=== PATIENT | male | born 1955 ===

== ENCOUNTER 2020-07-29 19:56 | Outpatient (CLI) | payer OTHER, MEDICARE, SELFPAY ==
[2020-07-30 02:08] LABS: Iron 40 ug/dL (59-158)
[2020-07-30 02:20] LABS: Vitamin B12 975 pg/mL (232-1245)
== END 2020-07-29 19:57 | disposition home or self-care (01) ==
LOC: LAB 20:01
PROVIDERS: Visit Provider Internal Medicine
DX: D50.9 Iron deficiency anemia, unspecified (principal)
CPT/HCPCS: 82607; 83540